=== PATIENT | female | born 1975 | race Two or more races ===

== ENCOUNTER → 2022-07-03 | Emergency (ER) | payer OTHER ==
[~2022-07-03] VITALS: Ht 162.6 cm; Wt 90.7 kg
[~2022-07-03] MED LIST: CLONAZEPAM0.5 MG PO; CLONAZEPAM1 MG PO; VENLAFAXINE HC225 MG PO
== END | disposition left against medical advice (07) ==
LOC: ER 11:11
DX: Z53.21 Procedure and treatment not carried out due to patient leaving prior to being seen by health care provider (principal)

== ENCOUNTER 2024-10-04 10:02 | Emergency (ER) | payer OTHER ==
[~2024-10-04] VITALS: Ht 162.6 cm; Wt 95.3 kg
[2024-10-04 12:09] LABS: HEMATOCRIT 42.3 % (36.0-45.00); HEMOGLOBIN 13.5 g/dL (12.0-15.00); MEAN CELL VOLUME 72.1 fL (80.00-100.00); MEAN CORPUSCULAR HGB CONC 31.9 g/dl (32.0-36.0); PLATELET COUNT 351 K/uL (150-450); RED BLOOD COUNT 5.86 M/uL (4.00-6.00); RED CELL DISTRIBUTION WIDTH 19.7 % (11.5-14.5)
== END 2024-10-04 13:19 | disposition home or self-care (01) ==
LOC: ER 10:04
PROVIDERS: Emergency Medicine
DX: B34.9 Viral infection, unspecified (principal); J00 Acute nasopharyngitis [common cold]; Z20.822 Contact with and (suspected) exposure to COVID-19